=== PATIENT | male | born 1990 | race American Indian/Alaskan Native ===

== ENCOUNTER 2020-06-11 19:25 | Emergency (ER) | payer SELFPAY ==
[2020-06-11 20:33] VITALS: BP 125/77
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
--- NOTE | 2020-06-11 22:35 | XRay Report ---
CHEST 2 VIEWS INDICATION / CLINICAL INFORMATION: chestpain. COMPARISON: None available. FINDINGS: SUPPORT DEVICES: None. HEART / MEDIASTINUM: No significant abnormality. LUNGS / PLEURA: No significant pulmonary or pleural abnormality. No pneumothorax. ADDITIONAL FINDINGS: No significant additional findings. IMPRESSION: 1. No acute findings. Signer Name: Paige Parada MD Signed: 06/11/2020 10:31 PM Workstation Name: [id number]
== END 2020-06-11 23:39 | disposition home or self-care (01) ==
LOC: ED 19:25
DX: M94.0 Chondrocostal junction syndrome [Tietze] (principal); F17.200 Nicotine dependence, unspecified, uncomplicated; Z79.899 Other long term (current) drug therapy
CPT/HCPCS: 71046; 93005; 99283

== ENCOUNTER 2021-02-03 12:50 | Emergency (ER) | payer SELFPAY ==
[2021-02-03] MEDS ORDERED: AZITHROMYCIN 250 MG TAB PO ONE (15:34)
[2021-02-03] MEDS ORDERED: LIDOCAINE-MPF (1%) 10 MG/1 ML VIAL 5 ML INFILTRATI ONE (15:35)
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
[2021-02-03 15:45] VITALS: BP 136/94
== END 2021-02-03 18:18 | disposition home or self-care (01) ==
LOC: ED 12:50
DX: Z20.2 Contact with and (suspected) exposure to infections with a predominantly sexual mode of transmission (principal); F17.200 Nicotine dependence, unspecified, uncomplicated; Z98.890 Other specified postprocedural states; Z79.899 Other long term (current) drug therapy
CPT/HCPCS: 96372; 99282; J0696